=== PATIENT | male | born 1995 ===

== ENCOUNTER 2019-04-12 09:46 | Emergency (ER) | payer BC ==
[2019-04-12 11:37] VITALS: BP 133/67
--- NOTE | 2019-04-12 11:47 | UC ---
Respiratory Complaint HPI - HPI Summary HPI Summary: Patient is a 23-year-old [employer] student who presents with 2 weeks of progressive cough and congestion. Patient states last 3 days his cough has been grieving rust color. Patient states he is having some back pain related to coughing. Patient also states he developed head congestion and ear pain and sinus pressure and postnasal drip. Patient eating and drinking but decreased appetite. No documented fever although he had some sweats last 2 nights. Patient took some NyQuil as well as Tylenol last night but nothing today. Patient was in a house with 2 roommates of similar symptoms but "not as severe "patient without a history of lung disease or asthma. Patient does not think he got the flu vaccine this year. Patient's medications reviewed this visit. - History of Current Complaint Chief Complaint: UCGeneralIllness Stated Complaint: FEVER,COUGH Time Seen by Provider: 04/12/19 11:47 Hx Obtained From: Patient Severity Initially: Moderate Severity Currently: Moderate Pain Intensity: 7 Pain Scale Used: 0-10 Numeric - Allergies/Home Medications Allergies/Adverse Reactions: Allergies Allergy/AdvReac Type Severity Reaction Status Date / Time No Known Allergies Allergy Verified 04/12/19 11:33 Home Medications: Home Medications Acetaminophen [Tylenol Extra Strength] 500 mg PO ONCE PRN 04/12/19 [History Confirmed 04/12/19] Dm/Acetaminophen/Doxylamine [Nighttime Cold-Flu Rlf Sftgl] 1 each PO ONCE [History Confirmed 04/12/19] PMH/Surg Hx/FS Hx/Imm Hx Previously Healthy: Yes - Surgical History Surgical History: Yes Surgery Procedure, Year, and Place: septum repair. tonsillectomy - Family History Known Family History: Positive: Non-Contributory - Social History Occupation: Student Lives: Dormitory/Roommates Alcohol Use: Weekly Alcohol Amount: weekends Substance Use Type: None Smoking Status (MU): Never Smoked Tobacco Review of Systems All Other Systems Reviewed And Are Negative: Yes Constitutional: Positive: Fever - tactile ENT: Positive: Sore Throat, Nasal Discharge, Sinus Congestion, Sinus Pain/ Tenderness Respiratory: Positive: Cough Physical Exam - Summary Physical Exam Summary: Vital Signs Reviewed: Yes A+Ox3, no distress Eyes: Conjunctiva Clear, BECKY. EOM intact and full ENT: Hearing grossly normal TM x 2 clear, turbinates inflammed and boggy, + PND , mmoist, uvula midline, no exudate, no erythema Neck: Positive: Supple Respiratory: Positive: No respiratory distress, No accessory muscle use + coarse cough mild, exp wheeze Cardiovascular: RRR nl s1, s2 no m/r CBT <2 sec abd soft + BS nt/nd no guarding, no distension Musculoskeletal Exam: VILLAFUERTE x 4 without difficulty Strength Intact, ROM Intact Neurological: Positive: Alert, + sensation throughout Psychological: Positive: Normal Response To examiner Skin: Positive: no rash, no ecchymosis Triage Information Reviewed: Yes Vital Signs: Initial Vital Signs Temp 98.7 F 04/12/19 11:32 Pulse 98 04/12/19 11:32 Resp 15 04/12/19 11:32 BP 133/67 04/12/19 11:32 Pulse Ox 97 04/12/19 11:32 Re-Evaluation - Re-Evaluation First Eval Comment: Review chest x-ray with patient. Right lower lobe pneumonia. Discussed with patient secretion precautions. Antibiotics, albuterol MDI be prescribed as he says he felt better following the neb. Wheezing resolved. School note given. Antipyretics. Humidifier. Strict return precautions. I again offerer to talk to parents and patient declined Respiratory Course/Dx - Course Course Of Treatment: Patient presents to urgent care reporting progressive congestion and cough or pain. Patient states been getting worse for last 2-3 weeks and now has green brown sputum when he coughs as well as from his nose. Tactile fever. Patient states he is related to coughing. On exam vital signs are stable. Patient with fluid in the left ear sinus congestion postnasal drip and sinus was released. We'll check for flu. We'll do chest x-ray and DuoNeb medicines. I offered to speak to patient's mom and she declined declined. We'll reassess following neb. - Differential Dx/Diagnosis Provider Diagnosis: CAP (community acquired pneumonia) Discharge ED - Sign-Out/Discharge Documenting (check all that apply): Patient Departure All imaging exams completed and their final reports reviewed: Yes - Discharge Plan Condition: Stable Disposition: HOME Prescriptions: Albuterol HFA INHALER* [Ventolin HFA Inhaler*] 2 puff INH Q4H PRN #1 mdi PRN Reason: wheeze DOXYcycline CAP(*) [DOXYcycline 100MG CAP(*)] 100 mg PO BID #20 cap Inhaler, Assist Devices [Aerochamber Mv] 1 each PO Q4HR #1 spacer Patient Education Materials: Community Acquired Pneumonia (ED) Forms: *Gen. Provider Communication Referrals: [facility] [Outside] No Primary Care Phys,NOPCP [Primary Care Provider] - Additional Instructions: - Take antibiotics exactly as prescribed until gone -Use your albuterol puffer - 2 puffs ever 4-6 hours for the next 2 days - then as needed for cough or wheeze -Stay well hydrated - avoid excess caffeine and all alcohol - eat regular, healthy meals - get plenty of restful sleep - Okay to alternate ibuprofen (Advil, Motrin) and Tylenol (acetaminophen) every 3 hours for pain or fever. Take with food. Do NOT take for more than 4-5 days. - humidify the room in the air where you sleep - These infections are spread by oral secretions. Do not share eating or drinking utensils. Frequent hand washing is important. Clean items that may get your secretions on them such as cell phones, ipads, computer mouse, television remotes. Once you have been on antbiotics for 2 days, change your pillowcase and your toothbrush -Contact the [facility] to arrange a follow-up appointment this week. Call the health center, return here or go to the emergency department with any questions or concerns - Billing Disposition and Condition Condition: STABLE Disposition: Home
[2019-04-12] MEDS ORDERED: Albuterol/Ipratropium NEB.SOL* Albuterol 2.5 MG/Ipratropium 0.5 MG 3 ML INH ONE (11:55)
[2019-04-12 12:16] LABS: Influenza A Molecular NEGATIVE (Negative); Influenza B Molecular NEGATIVE (Negative)
== END 2019-04-12 12:52 | disposition home or self-care (01) ==
LOC: UCCORT 09:46
DX: J18.1 Lobar pneumonia, unspecified organism (principal); M54.9 Dorsalgia, unspecified; R09.89 Other specified symptoms and signs involving the circulatory and respiratory systems; R09.82 Postnasal drip; H92.09 Otalgia, unspecified ear
CPT/HCPCS: 71046; 99212; A9270-GY; G0463

== ENCOUNTER 2019-08-02 08:52 | Emergency (ER) | payer BC ==
[2019-08-02 09:01] VITALS: BP 127/69
--- NOTE | 2019-08-02 10:01 | UC ---
Hand/Wrist HPI - HPI Summary HPI Summary: right handed male punched a wall yesterday hand pain and swelling - History Of Current Complaint Chief Complaint: UCUpperExtremity Stated Complaint: RIGHT HAND INJURY Time Seen by Provider: 08/02/19 09:08 Hx Obtained From: Patient Onset/Duration: Sudden Onset Severity Initially: Severe Severity Currently: Moderate Pain Intensity: 7 Pain Scale Used: 0-10 Numeric Character Of Pain: Aching, Throbbing Aggravating Factor(s): Movement Alleviating Factor(s): Rest, Elevation Associated Signs And Symptoms: Positive: Swelling, Bruising Related History: Dominant Hand Right Hands: 1 - tender/swollen - Allergies/Home Medications Allergies/Adverse Reactions: Allergies Allergy/AdvReac Type Severity Reaction Status Date / Time No Known Allergies Allergy Verified 08/02/19 08:58 Home Medications: Home Medications DOXYcycline CAP(*) [DOXYcycline 100MG CAP(*)] 100 mg PO BID 08/02/19 [History Confirmed 08/02/19] PMH/Surg Hx/FS Hx/Imm Hx Previously Healthy: Yes - Surgical History Surgical History: Yes Surgery Procedure, Year, and Place: septum repair. tonsillectomy - Family History Known Family History: Positive: Hypertension - Social History Alcohol Use: Weekly Alcohol Amount: weekends Substance Use Type: None Smoking Status (MU): Never Smoked Tobacco Review of Systems All Other Systems Reviewed And Are Negative: Yes Constitutional: Positive: Negative Skin: Positive: Bruising Eyes: Positive: Negative ENT: Positive: Negative Respiratory: Positive: Negative Cardiovascular: Positive: Negative Gastrointestinal: Positive: Negative Genitourinary: Positive: Negative Motor: Positive: Negative Neurovascular: Positive: Negative Musculoskeletal: Positive: Other: - see HPI Neurological/Mental Status: Positive: Negative Psychological: Positive: Negative Physical Exam Triage Information Reviewed: Yes Appearance: Well-Appearing, No Pain Distress, Well-Nourished Vital Signs: Initial Vital Signs Temp 97.6 F 08/02/19 08:57 Pulse 67 08/02/19 08:57 Resp 16 08/02/19 08:57 BP 127/69 08/02/19 08:57 Pulse Ox 100 08/02/19 08:57 Vital Signs Reviewed: Yes Eyes: Positive: Conjunctiva Clear ENT: Positive: Hearing grossly normal. Negative: Nasal congestion, Nasal drainage, Trismus, Muffled voice, Hoarse voice Dental Exam: Normal Neck: Positive: Supple, Nontender, No Lymphadenopathy Respiratory: Positive: Lungs clear, Normal breath sounds, No respiratory distress, No accessory muscle use Cardiovascular: Positive: RRR, No Murmur Musculoskeletal: Positive: Other: - see image Neurological: Positive: Alert Psychological Exam: Normal Skin Exam: Normal Procedures - Splinting Right Upper Extremity Hand-Made Type: orthoglass Splint: ulnar Pre-Proc Neuro Vasc Exam: normal Post-Proc Neuro Vasc Exam: normal Splint Applied by Provider: [facility] - Radiology No standard instances Radiology Interpretation Completed By: Radiologist Summary of Radiographic Findings: right hand-#. Mildly impacted fractures at the bases of the fourth and fifth metacarpals with evidence for intra-articular extension. Hand/Wrist Course/Dx - Differential Dx/Diagnosis Provider Diagnosis: Fracture of fourth metacarpal bone of right hand, Fracture of base of fifth metacarpal bone of right hand Discharge ED - Sign-Out/Discharge Documenting (check all that apply): Patient Departure All imaging exams completed and their final reports reviewed: Yes - Discharge Plan Condition: Stable Disposition: HOME Patient Education Materials: Hand Fracture (ED) Referrals: No Primary Care Phys,NOPCP [Primary Care Provider] - Jerzy Nieves MD [Medical Doctor] - As Soon As Possible Additional Instructions: #. Mildly impacted fractures at the bases of the fourth and fifth metacarpals with evidence for intra-articular extension. Splint elevate advil or aleve follow up with Dr. Nieves -first available appt - Billing Disposition and Condition Condition: STABLE Disposition: Home
== END 2019-08-02 10:00 | disposition home or self-care (01) ==
LOC: UCCORT 08:52
DX: S62.314A Displaced fracture of base of fourth metacarpal bone, right hand, initial encounter for closed fracture (principal); S62.316A Displaced fracture of base of fifth metacarpal bone, right hand, initial encounter for closed fracture; W22.09XA Striking against other stationary object, initial encounter; Y92.9 Unspecified place or not applicable
CPT/HCPCS: 99212; G0463